=== PATIENT | female | born 1970 | race Caucasian/White ===

== ENCOUNTER 2017-08-26 08:16 | Inpatient (IN) | payer SELFPAY ==
[2017-08-26 10:06] LABS: Troponin I 3.486 ng/mL (< 0.028)
[2017-08-26] MEDS ORDERED: Ondansetron HCl/PF 4 MG/2 ML Vial ONE (11:42)
--- NOTE | 2017-08-26 12:03 | HP ---
PRIMARY CARE PHYSICIAN: [facility]. REASON FOR ADMISSION: Non-ST elevation myocardial infarction. HISTORY OF PRESENT ILLNESS: A 46-year-old female who has underlying history of coronary artery disease. She is following Dr. Tong in the [facility] for cardiology care. The patient reports that in 09/2015 she had cardiac catheterization was done and angioplasty and stent was placed. She was also told that she has small vessel disease and they cannot do any more stenting and advised medical therapy. This patient also has underlying morbid obesity and chronic kidney disease. Yesterday around 8:00 p.m. the patient was started having pain. Initially her pain was on and off. She was experiencing substernal heaviness without any association of nausea, vomiting, diaphoresis or shortness of breath. She initially ignored to go to emergency room. Around 12 midnight the patient's pain got worse. She took aspirin and nitroglycerin that helped a little bit her pain, but by that time her chest was hurting more severely along with shortness of breath, nausea and she was feeling heaviness and pressure-like sensation which was continued up until 1:00 a.m. At that point, the patient's started driving towards [facility], but on the way patient 's pain gotten worse and that is why they called 911 and patient was taken to nearest emergency room in [place]. At [place] [facility], this patient was evaluated, initially she was hypertensive. She had elevated troponin. She was also hyperglycemic and that is why she was given Humulin R 15 units. She was given morphine 4 mg and aspirin 325 mg. Patient reports that she was having muscle spasm and that is why she was recently prescribed prednisone and she started taking prednisone yesterday. Patient also reports that yesterday she had chest pain and that is why she went to [facility] Emergency Room, but they did routine blood tests and cardiac enzymes and she was told that everything was fine and she was discharged home from ER, but after going home, pain started all over again around 8:00 p.m. Her troponin has kept going up and now she has non-STEMI range troponin. We are admitting this patient on telemetry floor for full admission. The patient does have chronic renal insufficiency. In our hospital system, her last cardiac enzymes were normal and her creatinine was 1.96 and today is 2.59. When I saw this patient, at that time, patient is comfortable. Her pain is reduced. PAST MEDICAL HISTORY: Hypertension, dyslipidemia, myocardial infarction required a stent placement in 09/2016, insulin-dependent diabetes mellitus, morbid obesity, sleep apnea, hypothyroidism, chronic kidney disease stage 4, osteoarthritis, gastroesophageal reflux disease. 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 PAST PSYCHIATRIC HISTORY: Reviewed and negative. SOCIAL HISTORY: Patient is and lives at home with her . No history of tobacco, alcohol or illicit drug abuse. FAMILY HISTORY: No strong family history of premature coronary artery disease, stroke or cancer. EMERGENCY ROOM COURSE: Patient is given Humulin R 15 units and then 14 units, morphine sulfate 4 mg and aspirin 324 mg at [place] [facility]. CURRENT HOME MEDICATIONS: Plavix 75 mg p.o. daily, Protonix 40 mg p.o. daily, losartan 50 mg p.o. b.i.d., amlodipine 10 mg p.o. daily, Lasix 40 mg p.o. b.i.d. , Aldactone 50 mg p.o. daily, glipizide 10 mg p.o. twice daily, Lipitor 80 mg p.o. at bedtime, metoprolol tartrate 100 mg p.o. daily, levothyroxine 175 mcg p.o. daily, Imdur 120 mg p.o. daily, aspirin 81 mg p.o. daily, Humulin 70/30 units subcu twice daily, tramadol 50 mg q.6 hourly, prednisone 20 mg twice daily started on 08/26/2017. ALLERGIES: No known drug allergies. REVIEW OF SYSTEMS: The following complete review of systems was negative, unless otherwise mentioned in the HPI or below: Constitutional: Weight loss or gain, ability to conduct usual activities. Skin: Rash, itching. Eyes: Double vision, pain. ENT/Mouth: Nose bleeding, neck stiffness, pain, tenderness. Cardiovascular: Palpitations, dyspnea on exertion, orthopnea. Respiratory: Shortness of breath, wheezing, cough, hemoptysis, fever or night sweats. Gastrointestinal: Poor appetite, abdominal pain, heartburn, nausea, vomiting, constipation, or diarrhea. Genitourinary: Urgency, frequency, dysuria, nocturia. Musculoskeletal: Pain, swelling. Neurologic/Psychiatric: Anxiety, depression. Allergy/Immunologic: Skin rash, bleeding tendency. Please see my HPI for pertinent positives or negative. All other review of systems reviewed and negative except that mentioned in the HPI. PHYSICAL EXAMINATION: VITAL SIGNS: On arrival to our emergency room, blood pressure 157/58, pulse 82 , respiratory rate 22, temperature 97.6, saturation 98% on room air, weight 166 kilograms. GENERAL: Patient is currently alert, oriented, no obvious acute distress. HEAD: Normocephalic, atraumatic. EYES: Pupils round, reactive to light. Extraocular muscle intact. ENT: Oropharynx within normal limits. Moist mucous membranes. No oral lesions. No pharyngeal erythema, no exudate. NECK: Supple, no JVD, no thyromegaly, no carotid bruit, no meningeal signs of irritation. LUNGS: Morbid obesity limiting examination, but grossly clear to auscultation without any rhonchi or rales. CARDIAC: S1, S2 regular without any murmur. Distant sounds, but morbid obesity limiting examination. ABDOMEN: Morbid obesity limiting examination, but no palpable organomegaly, tenderness or peritoneal signs, no suprapubic discomfort. BACK: Examination unremarkable, no CVA tenderness. EXTREMITIES: Upper extremity passive movements of all joints are normal. Lower extremity; bilateral chronic lower extremity edema, no calf tenderness. SKIN: No skin rash. HEMATOLOGICAL SYSTEM: No lymphadenopathy. PSYCHIATRIC: Normal affect. NEUROLOGIC: Nonfocal examination. IMAGING DATA AND LABORATORY DATA: 1. EKG showing normal sinus rhythm, Q-waves in inferior leads, LVH. 2. CBC: WBC 11.0, hemoglobin 10.9, platelets 199, D-dimer 0.45. 3. BMP: Sodium 133, potassium 4.6, chloride 97, carbon dioxide 20, anion gap 21, BUN 75, creatinine 2.59, glucose 557, calcium 9.8. 4. LFT: AST 13, ALT 14, alkaline phosphatase 144, albumin 4.0, CK-MB 6.1, troponin 0.245 and then 3.486. 5. Urinalysis shows glucosuria. 6. Chest x-ray based on my review, no acute cardiopulmonary process. 7. Rib x-ray negative for any fracture. ASSESSMENT AND PLAN/IMPRESSION: 1. [id number] elevation myocardial infarction. This patient has recurrent angina since yesterday. Her angina got worse last night and even got more worse on midnight. Currently, EKG is not showing any new changes, but her troponin is significantly abnormal. She does have underlying history of coronary artery disease. She has one stent placed. She has renal insufficiency. At this point, we will try to obtain medical record from [facility] as she had cardiac catheterization and stent placed last year. Given renal insufficiency, patient is not a good candidate for any further cardiac catheterization. We will try to treat her medically. We will obtain echocardiography. We will consult Cardiology. Cardiac rehabilitation will be consulted. We will monitor on telemetry floor. We will check lipid profile tomorrow morning for risk stratification. Meanwhile, we will continue with aspirin 81 mg p.o. daily, Plavix 75 mg p.o. daily, nitropatch q.8 hourly and we will try to control her underlying risk factors of diabetes, hypertension, and cholesterol. We will start Lipitor 40 mg p.o. at bedtime. 2. Hyperglycemia associated with diabetes type 2, most likely related with her recent steroid use. At this point, we will discontinue steroid. Patient has muscle spasm and we will use Flexeril p.r.n. basis. We will continue with insulin 70/30 at 100 units subcutaneous twice daily and regular insulin as per aggressive sliding scale. Diabetic diet will be given. We will also continue glipizide 10 mg p.o. b.i.d. We will check hemoglobin A1c to see overall control. 3. Hypertension. We will continue losartan 50 mg twice daily, amlodipine 10 mg p.o. daily. Because of renal insufficiency, we will hold on Aldactone therapy as well as Lasix therapy. We will continue nitropatch q.8 hourly. 4. Morbid obesity and obstructive sleep apnea. Patient can use her home continuous positive airway pressure machine while in hospital if needed. 5. Gastroesophageal reflux disease. We will continue Protonix 40 mg p.o. daily. 6. Coronary artery disease with history of stent. We will continue aspirin, Plavix, and statin therapy. 7. Hypothyroidism. We will check TSH tomorrow and continue Synthroid 175 mcg p.o. daily. 8. Dyslipidemia. Check lipid profile tomorrow and continue Lipitor 80 mg p.o. at bedtime. 9. Deep venous thrombosis prophylaxis. The patient will be given Lovenox 1 mg per kg subcutaneous daily as per renally adjusted dose for [id number] myocardial infarction that will cover for deep venous thrombosis prophylaxis as well. 10. Gastrointestinal prophylaxis, Protonix 40 mg p.o. daily. CODE STATUS: The patient is FULL CODE. The patient's is surrogate decision maker. Disposition plan based on clinical course. We are expecting patient's stay in hospital more than 2 midnights. Plan of care discussed with the patient in detail. MTDD
[2017-08-26 12:26] LABS: Troponin I 5.689 ng/mL (< 0.028)
[2017-08-26] MEDS ORDERED: Loperamide HCl 2 MG CAP PO PRN (12:27)
[2017-08-26] MEDS ORDERED: Milk Of Magnesia 30 ML UDCUP PO PRN (12:27)
[2017-08-26] MEDS ORDERED: Ondansetron HCl/PF 4 MG/2 ML Vial IVP PRN (12:27)
[2017-08-26] MEDS ORDERED: Zolpidem Tartrate 5 MG TAB PO PRN (12:27)
[2017-08-26] MEDS ORDERED: Senokot 8.6 MG TAB PO PRN (12:27)
[2017-08-26] MEDS ORDERED: Loratadine 10 MG TAB PO PRN (12:27)
[2017-08-26] MEDS ORDERED: hydrALAZINE 20 MG/ML VIAL SLOW IVP PRN (12:27)
[2017-08-26] MEDS ORDERED: Eucerin (Mineral Oil/Petrolatum,White) 30 gm Jar TOP PRN (12:27)
[2017-08-26] MEDS ORDERED: Labetalol HCl 100 MG/20 ML VIAL SLOW IVP PRN (12:27)
[2017-08-26] MEDS ORDERED: Chloraseptic Spray 180 ml Bottle PO PRN (12:27)
[2017-08-26] MEDS ORDERED: Insulin Regular 300 UNITS/3 ML VIAL SC PRN (12:27)
[2017-08-26] MEDS ORDERED: Diabetic Tussin 200 MG/10 ML UDCUP PO PRN (12:27)
[2017-08-26] MEDS ORDERED: Nitroglycerin 0.4 MG TAB (25 Tab Bottle) SL PRN (12:27)
[2017-08-26] MEDS ORDERED: Artificial Tears 18 DROP/0.9 ML EA EYE PRN (12:27)
[2017-08-26] MEDS ORDERED: Sodium Chloride 0.65% Nasal 44 ML BOT EA NARE PRN (12:27)
[2017-08-26] MEDS ORDERED: Mag-Al 1200 mg/1200 mg/30 ML UDCUP PO PRN (12:27)
[2017-08-26] MEDS ORDERED: Ondansetron ODT 4 MG TAB PO PRN (12:27)
[2017-08-26] MEDS ORDERED: Dextrose 5% in Water 1,000 ML IV PRN (12:27)
[2017-08-26] MEDS ORDERED: Dextrose 50% Abboject 50 ML SYRINGE SLOW IVP PRN (12:27)
[2017-08-26] MEDS ORDERED: Nitroglycerin 50 MG/250 ML BOT 250 ML IVPB SCH (13:00)
[2017-08-26] MEDS: Morphine 10 MG/ML CARPUJECT SLOW IVP PRN (13:18)
[2017-08-26] MEDS: Nitroglycerin 2% Ointment 1 INCH/1 GM Packet TOP SCH ×2 (13:19→22:09)
--- NOTE | 2017-08-26 13:40 | CON ---
DATE OF CONSULTATION: 08/26/2017 REASON FOR CONSULTATION: Non-STEMI. HISTORY OF PRESENT ILLNESS: Mrs. Raygoza is a 46-year-old white female who comes to the hospital for chest pain. She has significant history of coronary artery disease. She sees Dr. Solo at [facility] for this. She had a stent placed according to her in 09/2016, just about a year ago. She stat es that she had a heart catheterized through the right radial approach and she was told that her thre e major arteries were occluded at about 90%, but they can only stent 1, the other 2 were treated medi jennifer as one of them was too small to do anything about and the other one was not crossable apparentl y. She continued to have pain afterwards and was treated with medications. She had been doing well since, it is unclear what type of stent she had been replaced. She has been compliant with the her m edications. She started having pain yesterday. She went to the [facility] ER, and she was told it was musculoskeletal and apparently they did blood work that showed she was having an VT. She continued t o have pain and she called 911. EMS took her to the closest hospital, which is [facility], and she was then transferred over here as her troponins were elevated. Currently, she is having 5/10 chest pain, which she seems comfortable. PAST MEDICAL HISTORY: 1. Hypertension. 2. Hyperlipidemia. 3. History of myocardial infarction, requiring stent placement as above. 4. Type 2 diabetes, on insulin. 5. Morbid obesity. 6. Sleep apnea. 7. Hypothyroidism. 8. Chronic kidney disease stage 4. 9. Osteoarthritis. 10. Gastroesophageal reflux disease. PAST SURGICAL HISTORY: 1. Cardiac catheterization with stent placement as above. 2. Carpal tunnel syndrome. 3. Bilateral total hysterectomy. 4. Bilateral eye surgery due to nerve damage. SOCIAL HISTORY: . No alcohol, tobacco, or drugs. FAMILY HISTORY: No early coronary disease. REVIEW OF SYSTEMS: A 12-point review of systems was done and is all negative unless stated in the hi story of present illness. OUTPATIENT MEDICATIONS: 1. Plavix 75 mg a day. 2. Protonix. 3. Losartan 50 mg p.o. b.i.d. 4. Amlodipine 10 mg a day. 5. Lasix 40 mg b.i.d. 6. Aldactone 50 mg a day. 7. Glipizide 10 mg b.i.d. 8. Lipitor 80 mg at bedtime. 9. Metoprolol tartrate 100 mg daily. 10. Levothyroxine 175 mcg a day. 11. Imdur 120 mg a day. 12. Aspirin 81 a day. 13. Humulin 70/30 subcu twice a day. 14. Tramadol. 15. Prednisone 10 mg twice a day, started yesterday for supposed musculoskeletal chest pain that was she was diagnosed on. ALLERGIES: No known drug allergies. PHYSICAL EXAMINATION: VITAL SIGNS: Temperature 97.6, pulse 82, respiratory rate 22, satting 98% on room air, blood pressur e 157/58. GENERAL: Awake, alert, oriented x3, in no distress. HEENT: Normocephalic, atraumatic. NECK: Supple. LUNGS: Clear. CARDIOVASCULA: S1, S2, distant heart sounds. No murmurs, no rubs. Pain is reproducible with palpat ion, however, this is not the pain she is feeling at the time this only hurts when you touch it, bett er when you stopped pressing on her chest. The pain she is feeling is deeper. ABDOMEN: Soft, positive bowel sounds. EXTREMITIES: 1+ edema. SKIN: Warm and dry. LABORATORY WORK: Reviewed. Coags: D-dimer 0.45. Chemistry with the sodium of 133, potassium is 4. 6, BUN of 75, creatinine 2.6, GFR of 20, glucose 556. Troponins are 0.24, now 3.4, now 5.6. CK-MB i s normal at 6.1, albumin of 4.0. UA was unremarkable except for 1000 glucose and trace blood. CBC w as white count of 11, hemoglobin of 10.9, hematocrit of 33, platelet count 199. EKG was reviewed, normal sinus rhythm. Repeat EKG done just now due to her ongoing chest pain was co mpletely normal. Chest x-ray on admission showed no acute findings. Ribs x-ray showed no displaced left-sided rib fra cture or underlying pneumothorax. ASSESSMENT AND PLAN: 1. Non-ST elevation myocardial infarction. 2. Chest pain. 3. Known coronary artery disease. 4. Morbid obesity. 5. Type 2 diabetes. 6. Obstructive sleep apnea. PLAN: 1. I had a long conversation with her about the risk of doing heart catheterization in the setting o f her renal dysfunction and there is a high likelihood that she may need dialysis afterwards. She do es not want this. I also spoke to her that the only way to reduce the risk was to put her on fluids overnight and then plan on doing this tomorrow. She says she is more agreeable to this. I stated th at we could also just treat her medically and we would not know where her blockages are and how bad t hey looking, but we would make sure that she is on all the right medications. She chose to be placed on fluids and then trying to do this tomorrow. We will try to do through the right radial approach given her weight and we will try to minimize the contrast use as much as possible. 2. We will do morphine and if we were unable to control her chest pain, we will put her on a nitrogl ycerin drip. 3. We will also get records from [facility] and [facility] to see what her anatomy looks like as it may have s ome bearing in what we do tomorrow. 4. Echocardiogram, pending. Thank you for letting us to participate in the care of your patient. We will follow.
[2017-08-26 14:20] VITALS: BMI 59.1
[2017-08-26] MEDS: glipiZIDE 5 MG TAB PO SCH (17:26)
[2017-08-26] MEDS: Sodium Chloride 0.9% 1,000 ML IV SCH (22:04)
[2017-08-26] MEDS: Atorvastatin Calcium 40 MG TAB PO SCH (22:08)
[2017-08-26] MEDS: Enoxaparin Sodium 80 MG/0.8 ML SYRINGE SC SCH (22:08)
[2017-08-26] MEDS: Metoprolol Tartrate 50 MG TAB PO SCH (22:08)
[2017-08-26] MEDS: Insulin NPH/Reg Insulin Hm 300 UNITS/3 ML VIAL SC SCH (22:09)
[2017-08-27 05:20] LABS: #Basophils 0.1 thou/uL (0.0-0.2); #Eosinphils 0.5 thou/uL (0.0-0.7); #Lymphocytes 5.5 thou/uL (1.20-3.40); #Monocytes 0.6 thou/uL (0.11-0.59); #Neutrophils 4.4 thou/uL (1.40-6.50); %Basophils 1.2 % (0.0-1.0); %Eosinophils 4.2 % (0.0-10.0); %Lymphocytes 49.9 % (21.0-51.0); %Monocytes 5.1 % (0.0-10.0); %Neutrophils 39.7 % (42.0-75.0); Hemoglobin 9.9 g/dL (12.0-16.0); Mean Corpuscular HGB CONC 32.8 g/dL (32.0-36.0); Mean Corpuscular Hemoglobin 29.6 pg (27.0-31.0); Mean Corpuscular Volume 90.2 fl (81.0-99.0); Mean Platelet Volume 7.3 fL (7.4-10.4); Platelet Count 172 thou/uL (130-400); Red Blood Cell (RBC) Count 3.34 mill/uL (4.20-5.40); White Blood Cell (WBC) Count 11.1 thou/uL (4.8-10.8)
[2017-08-27 05:37] LABS: ALT (SGPT) 16 U/L (8-55); AST (SGOT) 28 U/L (5-34); Albumin 3.5 g/dL (3.5-5.0); Alkaline Phosphatase 85 U/L (40-150); Anion Gap 14 mmol/L (10-20); BUN (Urea Nitrogen) 76 mg/dL (7.0-18.7); Bilirubin, Total 0.6 mg/dL (0.2-1.2); Calc. Creatinine Clearance 91 mL/min (70-130); Calcium 9.5 mg/dL (7.8-10.44); Carbon Dioxide 22 mmol/L (22-29); Cardiac Risk 4.4 (Less than 4.5); Chloride 103 mmol/L (98-107); Cholesterol 119 mg/dl (< 200 Desired); Estimated GFR-MDRD 27; Globulin 2.7 g/dL (2.4-3.5); HDL Cholesterol 27 mg/dL (>60 Neg Risk); LDL Cholesterol, Calculated 45 mg/dL; Potassium 3.8 mmol/L (3.5-5.1); Protein, Total 6.2 g/dL (6.0-8.3); Sodium 135 mmol/L (136-145); Triglycerides 233 mg/dL (Less than 150)
[2017-08-27 05:39] LABS: Glucose 59 mg/dL (70-105)
[2017-08-27] MEDS: Metoprolol Tartrate 50 MG TAB PO SCH ×2 (05:54→20:03)
[2017-08-27] MEDS: Clopidogrel Bisulfate 75 MG TAB PO SCH (05:55)
[2017-08-27] MEDS: Nitroglycerin 2% Ointment 1 INCH/1 GM Packet TOP SCH ×3 (05:55→22:34)
[2017-08-27] MEDS: Sodium Chloride 0.9% 1,000 ML IV SCH ×2 (05:56→15:17)
[2017-08-27] MEDS: Levothyroxine 175 MCG TAB PO SCH (06:34)
[2017-08-27] MEDS ORDERED: Heparin 10,000 UNITS/1 ML VIAL ONE (08:27)
[2017-08-27] MEDS ORDERED: Nitroglycerin 100MG/250ML BOT 250 ML ONE (08:27)
[2017-08-27] MEDS ORDERED: Verapamil 5 MG/2 ML VIAL ONE (08:27)
[2017-08-27] MEDS ORDERED: Midazolam HCl 2 mg/2 ml Vial ONE (08:34)
[2017-08-27] MEDS ORDERED: Fentanyl 100 MCG/2 ML VIAL ONE (08:35)
[2017-08-27] MEDS ORDERED: Amlodipine 10 MG TAB PO SCH ×2 (09:00→11:00)
[2017-08-27] MEDS ORDERED: Acetaminophen/Codeine 30-300mg Tablet PO PRN (09:09)
[2017-08-27] MEDS ORDERED: traMADol HCl 50 MG TAB PO PRN (09:09)
[2017-08-27] MEDS ORDERED: Sodium Chloride 0.9% 200 ML IV PRN (09:15)
[2017-08-27] MEDS: glipiZIDE 5 MG TAB PO SCH ×2 (10:22→15:49)
--- NOTE | 2017-08-27 10:33 | PDOC.PN ---
- Subjective Encounter Start Date: 08/27/17 Encounter Start Time: 08:25 -: old records requested/rev Patient seen and examined. No new complaints. No overnight events - Objective Resuscitation Status: Resuscitation Status FULL:Full Resuscitation MAR Reviewed: Yes Vital Signs & Weight: Vital Signs (12 hours) Temp Pulse Resp BP BP Pulse Ox 08/27/17 07:52 97.8 F 70 20 129/53 L 93 L 08/27/17 04:00 98.0 F 69 20 120/52 L 93 L 08/27/17 01:30 100 08/27/17 00:00 97.9 F 67 18 131/65 98 Weight Weight 365 lb 15.477 oz I&O: 08/26/17 08/27/17 08/28/17 06:59 06:59 06:59 Intake Total 3480 Output Total 1500 Balance 1980 Result Diagrams: 08/27/17 04:38 08/27/17 04:38 Additional Labs: Accuchecks 08/27/17 08/26/17 08/26/17 06:36 20:33 16:44 POC Glucose 131 H 213 H 190 H Radiology Reviewed by me: Yes EKG Reviewed by me: Yes Phys Exam - Physical Examination Constitutional: NAD HEENT: PERRLA, moist MMs, sclera anicteric Neck: no JVD, supple Respiratory: no wheezing, no rales, no rhonchi Cardiovascular: RRR, no significant murmur, no rub Gastrointestinal: soft, non-tender, no distention, positive bowel sounds Musculoskeletal: no edema, pulses present Neurological: non-focal, normal sensation, moves all 4 limbs Psychiatric: normal affect, A&O x 3 Skin: no rash, normal turgor Dx/Plan (1) NSTEMI (non-ST elevated myocardial infarction) Code(s): I21.4 - NON-ST ELEVATION (NSTEMI) MYOCARDIAL INFARCTION Status: Acute (2) Anemia, normocytic normochromic Code(s): D64.9 - ANEMIA, UNSPECIFIED Status: Chronic (3) CAD (coronary artery disease) Code(s): I25.10 - ATHSCL HEART DISEASE OF [place] CORONARY ARTERY W/O ANG PCTRS Status: Chronic (4) CKD (chronic kidney disease) stage 4, GFR 15-29 ml/min Code(s): N18.4 - CHRONIC KIDNEY DISEASE, STAGE 4 (SEVERE) Status: Chronic (5) Diabetes type 2, uncontrolled Code(s): E11.65 - TYPE 2 DIABETES MELLITUS WITH HYPERGLYCEMIA Status: Chronic (6) Dyslipidemia Code(s): E78.5 - HYPERLIPIDEMIA, UNSPECIFIED Status: Chronic (7) GERD (gastroesophageal reflux disease) Code(s): K21.9 - GASTRO-ESOPHAGEAL REFLUX DISEASE WITHOUT ESOPHAGITIS Status: Chronic (8) Hypertension Code(s): I10 - ESSENTIAL (PRIMARY) HYPERTENSION Status: Chronic (9) Morbid obesity with BMI of 50.0-59.9, adult Code(s): E66.01 - MORBID (SEVERE) OBESITY DUE TO EXCESS CALORIES; Z68.43 - BODY MASS INDEX (BMI) 50-59.9 , ADULT Status: Chronic (10) MEDARDO (obstructive sleep apnea) Code(s): G47.33 - OBSTRUCTIVE SLEEP APNEA (ADULT) (PEDIATRIC) Status: Chronic (11) Osteoarthritis Code(s): M19.90 - UNSPECIFIED OSTEOARTHRITIS, UNSPECIFIED SITE Status: Chronic - Plan cont current plan of care * today cardiac cath * continue gentle ivf * repeat labs tomorrow * continue optimum medical therapy as below * medication reviewed as below * symptomatic treatment. Review of Systems - Review of Systems ENT: negative: Ear Pain, Ear Discharge, Nose Pain, Nose Discharge, Nose Congestion, Mouth Pain, Mouth Swelling, Throat Pain, Throat Swelling, Other Respiratory: negative: Cough, Dry, Shortness of Breath, Hemoptysis, SOB with Excertion, Pleuritic Pain, Sputum, Wheezing Cardiovascular: negative: chest pain, palpitations, orthopnea, paroxysmal nocturnal dyspnea, edema, light headedness, other Gastrointestinal: negative: Nausea, Vomiting, Abdominal Pain, Diarrhea, Constipation, Melena, Hematochezia, Other Genitourinary: negative: Dysuria, Frequency, Incontinence, Hematuria, Retention , Other Musculoskeletal: negative: Neck Pain, Shoulder Pain, Arm Pain, Back Pain, Hand Pain, Leg Pain, Foot Pain, Other Skin: negative: Rash, Lesions, Erick, Bruising, Other - Medications/Allergies Allergies/Adverse Reactions: Allergies Allergy/AdvReac Type Severity Reaction Status Date / Time No Known Allergies Allergy Verified 08/26/17 14:06 Medications: Current Medications Acetaminophen (Tylenol) 650 mg PO Q4H PRN PRN Reason: Headache/Fever or Pain Acetaminophen/Codeine Phosphate (Tylenol #3) 1 tab PO Q4H PRN PRN Reason: Mild Pain (1-3) Hydrocodone Bitart/Acetaminophen ([place] 5/325) 1 tab PO Q4H PRN PRN Reason: Moderate Pain (4-6) Al Hydroxide/Mg Hydroxide (Maalox) 30 ml PO Q6H PRN PRN Reason: Heartburn or Indigestion Amlodipine Besylate (Norvasc) 10 mg PO DAILY [facility] Artificial Tears (Tears Naturale) 0 drop EA EYE PRN PRN PRN Reason: Dry Eyes Aspirin (Aspirin Chewable) 81 mg PO DAILY [facility] Last Admin: 08/27/17 05:55 Dose: 81 mg Atorvastatin Calcium (Lipitor) 80 mg PO HS [facility] Last Admin: 08/26/17 22:08 Dose: 80 mg Clopidogrel Bisulfate (Plavix) 75 mg PO QAM [facility] Last Admin: 08/27/17 05:55 Dose: 75 mg Dextrose/Water (Dextrose 50%) 25 gm SLOW IVP PRN PRN PRN Reason: Hypoglycemia Last Admin: 08/27/17 05:47 Dose: 25 gm Enoxaparin Sodium (Lovenox) 160 mg SC 2100 [facility] Last Admin: 08/26/17 22:08 Dose: 160 mg Glipizide (Glucotrol) 5 mg PO BID-AC [facility] Last Admin: 08/27/17 10:22 Dose: Not Given Glucagon (Glucagon) 1 mg IM PRN PRN PRN Reason: Hypoglycemia Guaifenesin (Robitussin Sf) 200 mg PO Q4H PRN PRN Reason: Cough Hydralazine HCl (Apresoline) 10 mg SLOW IVP Q4H PRN PRN Reason: Systolic BP > 180 Dextrose/Water (D5w) 1,000 mls @ 0 mls/hr IV .Q0M PRN; As Directed PRN Reason: Hypoglycemia Nitroglycerin/Dextrose (Nitroglycerin 50 Mg/250 Ml Bot) 250 mls @ 0 mls/hr IVPB INF [facility]; Titrate PRN Reason: Protocol Sodium Chloride (Normal Saline 0.9%) 1,000 mls @ 100 mls/hr IV .Q10H [facility] Stop: 08/27/17 14:30 Last Admin: 08/27/17 05:56 Dose: 1,000 mls Sodium Chloride (Normal Saline 0.9%) 200 mls @ 0 mls/hr IV ONE PRN; As Directed PRN Reason: Bolus PRN SBP < 90 mm Hg Stop: 08/30/17 09:16 Insulin Human Isoph/Insulin Regular (Humulin 70/30) 100 units SC BID [facility] Last Admin: 08/26/17 22:09 Dose: Not Given Insulin Human Regular (Humulin R) 0 units SC .AGGRESSIVE SLIDING PRN PRN Reason: Aggressive Sliding Scale Insulin Human Regular (Humulin R) 0 units SC .BEDTIME SLIDING SC PRN PRN Reason: Bedtime Correctional Scale Labetalol HCl (Normodyne) 20 mg SLOW IVP Q4H PRN PRN Reason: Systolic BP > 180 Levothyroxine Sodium (Synthroid) 175 mcg PO 0600 [facility] Last Admin: 08/27/17 06:34 Dose: 175 mcg Loperamide HCl (Imodium) 2 mg PO PRN PRN PRN Reason: Diarrhea/Loose Stools Loratadine (Claritin) 10 mg PO DAILYPRN PRN PRN Reason: Sinus Symptoms Magnesium Hydroxide (Milk Of Magnesium) 30 ml PO DAILYPRN PRN PRN Reason: Constipation Metoprolol Tartrate (Lopressor) 50 mg PO BID [facility] Last Admin: 08/27/17 05:54 Dose: 50 mg Mineral Oil/White Petrolatum (Eucerin Cream) 0 gm TOP BIDPRN PRN PRN Reason: Dry Skin Morphine Sulfate (Morphine) 2 mg SLOW IVP Q4H PRN PRN Reason: Pain Last Admin: 08/26/17 13:18 Dose: 2 mg Nitroglycerin (Nitrostat) 0.4 mg SL Q5MIN PRN PRN Reason: Chest Pain Nitroglycerin (Nitro-Bid 2% Ointment) 0.5 inch TOP Q8HR [facility] Last Admin: 08/27/17 05:55 Dose: 0.5 inch Ondansetron HCl (Zofran Odt) 4 mg PO Q6H PRN PRN Reason: Nausea/Vomiting Ondansetron HCl (Zofran) 4 mg IVP Q6H PRN PRN Reason: Nausea/Vomiting Pantoprazole Sodium (Protonix) 40 mg PO 2100 [facility] Phenol (Chloraseptic Bud 180 Ml Bot) 0 ml PO PRN PRN PRN Reason: Sore Throat Senna (Senokot) 2 tab PO HSPRN PRN PRN Reason: Constipation Sodium Chloride ([place] Nasal Bud 0.65%) 0 ml EA NARE QIDPRN PRN PRN Reason: Nasal Congestion Tramadol HCl (Ultram) 50 mg PO Q6H PRN PRN Reason: Moderate Pain (4-6) Zolpidem Tartrate (Ambien) 5 mg PO HSPRN PRN PRN Reason: Insomnia
[2017-08-27] MEDS: Insulin NPH/Reg Insulin Hm 300 UNITS/3 ML VIAL SC SCH ×2 (11:20→20:05)
[2017-08-27] MEDS: HYDROcodone/Acetaminophen 5/325 mg Tablet PO PRN ×2 (11:21→17:57)
[2017-08-27] MEDS: Amlodipine 10 MG TAB PO SCH (12:03)
[2017-08-27] MEDS ORDERED: Iopamidol 370 76% 100 ML VIAL ONE (16:41)
[2017-08-27] MEDS: Insulin Regular 300 UNITS/3 ML VIAL SC PRN (17:53)
[2017-08-27] MEDS: Enoxaparin Sodium 80 MG/0.8 ML SYRINGE SC SCH (20:02)
[2017-08-27] MEDS: Acetaminophen 325 MG TAB PO PRN (20:03)
[2017-08-27] MEDS: Atorvastatin Calcium 40 MG TAB PO SCH (20:03)
[2017-08-27] MEDS: Morphine 10 MG/ML CARPUJECT SLOW IVP PRN (20:05)
[2017-08-28] MEDS: Morphine 10 MG/ML CARPUJECT SLOW IVP PRN (00:27)
[2017-08-28] MEDS: Nitroglycerin 2% Ointment 1 INCH/1 GM Packet TOP SCH ×3 (06:10→21:42)
[2017-08-28] MEDS: Levothyroxine 175 MCG TAB PO SCH (06:10)
[2017-08-28] MEDS: HYDROcodone/Acetaminophen 5/325 mg Tablet PO PRN ×2 (06:16→13:04)
[2017-08-28] MEDS: Amlodipine 10 MG TAB PO SCH (08:04)
[2017-08-28] MEDS: Clopidogrel Bisulfate 75 MG TAB PO SCH (08:05)
[2017-08-28] MEDS: Metoprolol Tartrate 50 MG TAB PO SCH ×2 (08:05→20:40)
[2017-08-28] MEDS: glipiZIDE 5 MG TAB PO SCH ×2 (08:05→18:04)
[2017-08-28] MEDS: Insulin NPH/Reg Insulin Hm 300 UNITS/3 ML VIAL SC SCH ×2 (08:26→20:44)
--- NOTE | 2017-08-28 13:48 | PDOC.PN ---
- Subjective Encounter Start Date: 08/28/17 Encounter Start Time: 13:46 Patient seen and examined, sitting in chair, no new issues - Objective Resuscitation Status: Resuscitation Status FULL:Full Resuscitation Vital Signs & Weight: Vital Signs (12 hours) Temp Pulse Resp BP BP Pulse Ox 08/28/17 11:56 98.6 F 85 20 136/68 08/28/17 08:04 97 144/59 H 08/28/17 08:00 99.0 F 93 18 08/28/17 07:47 99.0 F 93 18 144/59 H 08/28/17 04:00 99.6 F 90 18 128/62 98 Weight Weight 365 lb 15.477 oz I&O: 08/27/17 08/28/17 08/29/17 06:59 06:59 06:59 Intake Total 3480 3830 Output Total 1500 3200 Balance 1980 630 Result Diagrams: 08/27/17 04:38 08/27/17 04:38 Additional Labs: Accuchecks 08/28/17 08/28/17 08/27/17 10:49 06:02 20:01 POC Glucose 131 H 71 342 H 08/27/17 17:04 POC Glucose 323 H Phys Exam - Physical Examination Constitutional: NAD obese HEENT: PERRLA, moist MMs Neck: no nodes, no JVD Respiratory: no wheezing, no rales, no rhonchi Cardiovascular: RRR, no significant murmur Gastrointestinal: soft, non-tender, no distention Musculoskeletal: pulses present, edema present 1+ pitting edema B/L LE Neurological: non-focal, normal sensation Dx/Plan (1) NSTEMI (non-ST elevated myocardial infarction) Code(s): I21.4 - NON-ST ELEVATION (NSTEMI) MYOCARDIAL INFARCTION Status: Acute (2) CKD (chronic kidney disease) stage 4, GFR 15-29 ml/min Code(s): N18.4 - CHRONIC KIDNEY DISEASE, STAGE 4 (SEVERE) Status: Chronic (3) Diabetes type 2, uncontrolled Code(s): E11.65 - TYPE 2 DIABETES MELLITUS WITH HYPERGLYCEMIA Status: Chronic (4) Dyslipidemia Code(s): E78.5 - HYPERLIPIDEMIA, UNSPECIFIED Status: Chronic (5) GERD (gastroesophageal reflux disease) Code(s): K21.9 - GASTRO-ESOPHAGEAL REFLUX DISEASE WITHOUT ESOPHAGITIS Status: Chronic (6) Hypertension Code(s): I10 - ESSENTIAL (PRIMARY) HYPERTENSION Status: Chronic (7) Morbid obesity with BMI of 50.0-59.9, adult Code(s): E66.01 - MORBID (SEVERE) OBESITY DUE TO EXCESS CALORIES; Z68.43 - BODY MASS INDEX (BMI) 50-59.9 , ADULT Status: Chronic (8) MEDARDO (obstructive sleep apnea) Code(s): G47.33 - OBSTRUCTIVE SLEEP APNEA (ADULT) (PEDIATRIC) Status: Chronic - Plan * BMP in AM, monitor for contrast induced injury over the next 24-48hrs * nephrology consulted for monitoring as well * ok to move to telemetry floor if ok with subspecialists * continue current plan of care * case and plan d/w patient at length, she understands and agrees with this plan
[2017-08-28] MEDS: Insulin Regular 300 UNITS/3 ML VIAL SC PRN (18:04)
[2017-08-28] MEDS: Atorvastatin Calcium 40 MG TAB PO SCH (20:40)
[2017-08-28] MEDS: Enoxaparin Sodium 80 MG/0.8 ML SYRINGE SC SCH (20:52)
[2017-08-29] MEDS: Levothyroxine 175 MCG TAB PO SCH (05:18)
[2017-08-29] MEDS: Nitroglycerin 2% Ointment 1 INCH/1 GM Packet TOP SCH (05:18)
[2017-08-29 06:20] LABS: Anion Gap 11 mmol/L (10-20); BUN (Urea Nitrogen) 47 mg/dL (7.0-18.7); Calc. Creatinine Clearance 111 mL/min (70-130); Calcium 9.5 mg/dL (7.8-10.44); Carbon Dioxide 25 mmol/L (22-29); Chloride 103 mmol/L (98-107); Estimated GFR-MDRD 34; Glucose 64 mg/dL (70-105); Sodium 135 mmol/L (136-145)
[2017-08-29 07:23] VITALS: TEMP 99.1
[2017-08-29] MEDS: glipiZIDE 5 MG TAB PO SCH (08:28)
[2017-08-29] MEDS: Clopidogrel Bisulfate 75 MG TAB PO SCH (08:28)
[2017-08-29] MEDS: Amlodipine 10 MG TAB PO SCH (08:29)
[2017-08-29] MEDS: Metoprolol Tartrate 50 MG TAB PO SCH (08:29)
--- NOTE | 2017-08-29 11:08 | DIS ---
DATE OF ADMISSION: 08/26/2017 DATE OF DISCHARGE: 08/29/2017 ADMITTING DIAGNOSES: Chest pain; non-ST elevation myocardial infarction; hypertension; dyslipidemia; history of myocardial infarction with stent placements; diabetes mellitus type 2, insulin-dependent; morbid obesity; obstructive sleep apnea; hypothyroidism; chronic kidney disease stage 4; osteoarthri tis and gastroesophageal reflux disease. DISCHARGE DIAGNOSES: Non-ST segment elevation myocardial infarction, resolved; hypertension, stable, dyslipidemia, history of myocardial infarction; diabetes mellitus type 2; morbid obesity; sleep apne a; hypothyroidism with chronic kidney disease 4; osteoarthritis and gastroesophageal reflux disease. HOSPITAL COURSE: This was a 46-year-old female admitted to the hospital due to complaints of chest d iscomfort and chest pain. The patient was found to have troponins, which were elevated at 3.46, peak ed at 5.6. The patient was evaluated by Internal Medicine and admitted to Internal Medicine and also seen by Cardiology as well as Nephrology for history of CKD. The patient had all options discussed with her by Cardiology team. The patient refused to have a cardiac catheterization considering that her creatinine was still unstable and she was very close to being dialyzed. This is dependent. The patient understood all risks and benefits and declined cardiac catheterization, was observed for a pe riod of 48 hours and the patient's symptoms were resolved, was going to go to cardiac rehabilitation. The patient was cleared for discharge from cardiac perspective as well as renal perspective. The p atient was to be discharged home. Follow up with PCP and Cardiology. DISPOSITION: Discharged home. MEDICATIONS: Resume home medications. See MAR. Optimal medical management already being done. FOLLOWUP: Follow up with PCP as well as Cardiology and Nephrology in 2-3 weeks. ACTIVITY: With cardiopulmonary restrictions. CONDITION: Guarded. Case and plan discussed with the patient at length. She understands and agrees with this plan.
[2017-08-29 11:49] VITALS: BP 129/65
[2017-08-29] MEDS: Insulin NPH/Reg Insulin Hm 300 UNITS/3 ML VIAL SC SCH (11:52)
[2017-08-29] MEDS: Acetaminophen 325 MG TAB PO PRN (11:53)
[2017-08-29] MEDS ORDERED: Enoxaparin Sodium 40 MG/0.4 ML SYRINGE SC SCH (21:00)
--- NOTE | 2017-09-02 19:36 | EKG ---
Test Reason : Blood Pressure : / mmHG Vent. Rate : 075 BPM Atrial Rate : 075 BPM P-R Int : 170 ms QRS Dur : 104 ms QT Int : 386 ms P-R-T Axes : 017 -03 039 degrees QTc Int : 431 ms Normal sinus rhythm Normal ECG When compared with ECG of 12-NOV-2008 13:02, Nonspecific T wave abnormality has replaced inverted T waves in Inferior leads Confirmed by GORDON WATKINS (2) on 09/02/2017 7:36:49 PM Referred By: RUDI Confirmed By:GORDON WATKINS
== END 2017-08-29 13:41 | disposition home or self-care (01) | DRG 281 ==
LOC: ERS 08:16 → IMCU/EMU 11:00 → 2NO 08-28 23:04
PROVIDERS: ADMIT Internal Medicine; ATTEND Internal Medicine
PROC: 4A023N7 Measurement of Cardiac Sampling and Pressure, Left Heart, Percutaneous Approach (ICD-10-PCS; principal; 2017-08-27)
PROC: B2111ZZ Fluoroscopy of Multiple Coronary Arteries using Low Osmolar Contrast (ICD-10-PCS; 2017-08-27)
DX: I21.4 Non-ST elevation (NSTEMI) myocardial infarction (principal); N18.4 Chronic kidney disease, stage 4 (severe); E11.22 Type 2 diabetes mellitus with diabetic chronic kidney disease; E11.65 Type 2 diabetes mellitus with hyperglycemia; Z68.43 Body mass index [BMI] 50.0-59.9, adult; I12.9 Hypertensive chronic kidney disease with stage 1 through stage 4 chronic kidney disease, or unspecified chronic kidney disease; E78.5 Hyperlipidemia, unspecified; E66.01 Morbid (severe) obesity due to excess calories; I25.119 Atherosclerotic heart disease of native coronary artery with unspecified angina pectoris; G47.33 Obstructive sleep apnea (adult) (pediatric); E03.9 Hypothyroidism, unspecified; M19.90 Unspecified osteoarthritis, unspecified site; K21.9 Gastro-esophageal reflux disease without esophagitis; D64.9 Anemia, unspecified; I25.2 Old myocardial infarction; Z79.02 Long term (current) use of antithrombotics/antiplatelets; Z79.82 Long term (current) use of aspirin; Z79.4 Long term (current) use of insulin; Z79.899 Other long term (current) drug therapy; Z95.5 Presence of coronary angioplasty implant and graft
CPT/HCPCS: 36415; 36416; 80048; 80053; 80061; 85025; 85379; 93005; 93010; 93306; 93458; 93798; 99152; C1769; J1644; J2250; J2405; J3010